=== PATIENT | female | born 1940 | race Caucasian/White ===

== ENCOUNTER 2018-08-04 13:28 | Outpatient (CLI) | payer MEDICARE, BC, SELFPAY ==
--- NOTE | 2018-08-04 | PFT_ITS ---
PULMONARY FUNCTION TEST REPORT Aleida Poole DATE OF SERVICE August 04, 2018 REQUESTING PROVIDER Jordin Lynne M.D. INTERPRETATION OF STUDY Spirometry shows moderately severe obstructive airways disease with no significant bronchodilator response, but there is some bronchodilator response though it does not reach significance dictated by ATS criteria. LUNG VOLUMES - Lung volumes show no evidence of restriction. DIFFUSION CAPACITY- Moderately reduced, which is normal when corrected to alveolar volume. AIRWAY RESISTANCE - Mildly reduced. IMPRESSION Moderately severe obstructive airway disease with some, but not significant bronchodilator response. This is associated with moderate diffusion defect. Clinical correlation recommended. Ruth Jones M.D. HERIBERTO/lyndon Leone 08/06/2018
--- NOTE | 2018-08-04 12:00 | DI.RAD_ITS ---
SYMPTOMS/DIAGNOSIS: PROGRESSIVE DYSPNEA, H/O COPD, J44.9 CHEST X-RAY, TWO VIEWS: Comparison is 08/05/17. The heart size and pulmonary vasculature are stable and within normal limits. The lungs are clear. No effusions or pneumothoraces are identified. There are degenerative changes seen throughout the thoracolumbar spine. There is exaggeration of the kyphosis seen in the thoracolumbar junction. IMPRESSION: No acute pulmonary process.
[2018-08-04] MEDS: Inhaler, Assist Device 1 EACH MC (14:31)
[2018-08-04] MEDS: Albuterol HFA 18 GM 200 PUFF INH IH (14:31)
== END 2018-08-04 13:48 ==
PROVIDERS: PCP Family Medicine; Visit Provider Family Medicine
DX: J44.9 Chronic obstructive pulmonary disease, unspecified (principal); R06.09 Other forms of dyspnea
CPT/HCPCS: 94060; 94150; 94726; 94729; 71046

== ENCOUNTER 2018-08-14 02:01 | Emergency (ER) | payer MEDICARE, BC, SELFPAY ==
[2018-08-14] VITALS (7 sets, daily range): BP systolic 143; BP diastolic 62; PULSE 58–85; RESP 4–36; TEMP 36.6; O2SAT 91–97
--- NOTE | 2018-08-14 02:38 | W.ED.GENAD ---
Discharge Plan Disposition Patient Disposition: HOME Condition: Good Discharge Details Chief Complaint: RespSymp Clinical Impression: Acute exacerbation of chronic obstructive pulmonary disease (COPD) Primary Care Provider: Jordin Lynne ED Provider: Michel Benjamin [facility] and New Rx's Prescriptions: New prednisone 10 mg tablet See Rx Instructions .ROUTE .COMPLEX Qty: 40 RF: 0 amoxicillin-pot clavulanate 875-125 mg tablet 1 tab PO BID Qty: 14 RF: 0 Continued hydrochlorothiazide 25 mg tablet 12.5 mg PO DAILY Qty: 90 RF: 3 Spiriva Respimat 2.5 mcg/actuation mist 2 puff IH DAILY Qty: 4 RF: 11 diclofenac sodium 50 mg tablet,delayed release (DR/EC) 50 mg PO TID PRN (Reason: pain) Qty: 60 RF: 0 amlodipine 5 mg tablet 5 mg PO DAILY Qty: 90 RF: 3 pravastatin 20 mg tablet 30 mg PO DAILY Qty: 135 RF: 3 calcium carbonate-vitamin D3 1 EACH tablet 1 ea PO DAILY RF: 0 Changed albuterol sulfate 90 mcg/actuation HFA aerosol inhaler 2 puff IH Q4H PRN (Reason: shortness of breath or wheezing) Qty: 18 RF: 4 Discharge Instructions Instructions: COPD (Chronic Obstructive Pulmonary Disease) (ED) Additional Instructions: Please use your albuterol (rescue inhaler) every 4 hours while ill. Take prednisone as directed for burst and taper. Take antibiotic as directed for 1 week. Follow-up with primary care next week. Return to emergency department if you develop fever, chest pain, increasing shortness of breath, mental status changes, other concerns. Referrals: Jordin Lynne [Primary Care Provider] - Discharge Data Discharge Date/Time-TO BE ENTERED AT DEPARTURE: 08/14/18 04:32 Medical Decision Making Patient with tachypnea and low 90s saturations but I do not know her baseline. There is no documentation of respiratory radial pulse oximetry at her primary care's office last week. She states that she does not feel any more short of breath than usual. She does have diffuse wheezing and rhonchi. She otherwise looks well. Will treat with DuoNeb and albuterol neb as well as reversed with steroids. Will obtain chest x-ray to rule out pneumonia. Do not think she needs laboratory studies at this point unless there is an obvious infiltrate on x-ray. She is not reporting an increase in sputum production or purulence. 04:15 -patient has had a DuoNeb and 2 albuterol nebs. Saturations are better. Still seems to tachypneic and continues to have wheezing but has better air exchange. Per her and her her breathing seems baseline. I do not see any significant change on chest x-ray compared to last week. Given the increased symptoms and increased cough we will continue steroid burst and taper. We will also start antibiotics for acute exacerbation of COPD without x-ray evidence of pneumonia. We will have her follow-up with primary care next week. We will have her return here to ED if fever, increasing shortness of breath, chest pain, confusion, other concerns. Medical Records Medical records reviewed: Yes I reviewed the patient's medical records. HPI General Mode of arrival: ambulatory. Date/Time Provider Initiated Documentation: 08/14/18 02:36. Limitations to Documentation: no limitations. Information obtained by: patient, family and old records reviewed. HPI Narrative: Patient presents to ED with complaints of cough that has worsened over the last couple of days. She reports having a cold with some congestion, plugged ears and cough. She has had no fever. She does not think she feels any more short of breath than usual. She denies having chest or back pain. She denies any GI symptoms other than loss of appetite. She was just seen by primary care last week. She had pulmonary function testing done prior to that. She was found to have moderate COPD. She has been started on Spiriva last week and was also given a short course of prednisone. Related Data Home Medications Medication Instructions Recorded Confirmed calcium carbonate-vitamin D3 1 ea PO DAILY 08/10/16 08/14/18 diclofenac sodium 50 mg 50 mg PO TID PRN #60 tab NS 07/09/18 08/14/18 tablet,delayed release amlodipine 5 mg tablet 5 mg PO DAILY #90 tab-cap 07/10/18 08/14/18 pravastatin 20 mg tablet 30 mg PO DAILY #135 tab-cap 07/10/18 08/14/18 hydrochlorothiazide 25 mg tablet 12.5 mg PO DAILY #90 tab-cap 08/04/18 08/14/18 tiotropium bromide 2.5 2 puff IH DAILY #4 gm 04/08/19 04/18/19 mcg/actuation mist for inhalation albuterol sulfate 2 puff IH Q4H PRN #18 gm 08/14/18 08/14/18 amoxicillin-pot clavulanate 1 tab PO BID #14 tab 08/14/18 prednisone See Rx Instructions .ROUTE 08/14/18 .COMPLEX #40 tab Previous Rx's Medication Instructions Recorded diclofenac sodium 50 mg 50 mg PO TID PRN #60 tab NS 07/09/18 tablet,delayed release amlodipine 5 mg tablet 5 mg PO DAILY #90 tab-cap 07/10/18 pravastatin 20 mg tablet 30 mg PO DAILY #135 tab-cap 07/10/18 hydrochlorothiazide 25 mg tablet 12.5 mg PO DAILY #90 tab-cap 08/04/18 tiotropium bromide 2.5 2 puff IH DAILY #4 gm 08/04/18 mcg/actuation mist for inhalation albuterol sulfate 2 puff IH Q4H PRN #18 gm 08/14/18 amoxicillin-pot clavulanate 1 tab PO BID #14 tab 08/14/18 prednisone See Rx Instructions .ROUTE 08/14/18 .COMPLEX #40 tab Allergies Allergy/AdvReac Type Severity Reaction Status Date / Time No Known Allergies Allergy Verified 08/14/18 02:10 General Stated Complaint: RespSymp LANA: 3 Review of Systems Review of Systems 02/09 Review of Systems completed and is negative except as stated above in HPI (Systems reviewed: Const, Eyes, ENT, Resp, CV, GI, , MSK, Skin, Neuro) PFSH Medical History Hyperlipidemia, unspecified (Chronic 08/20/16) Essential hypertension (Chronic 08/20/16) COPD (chronic obstructive pulmonary disease) (Chronic 08/27/17) Family History Mother Neoplasm Cancer Father Cancer Sister No problems noted. Brother No problems noted. Brother Essential hypertension Cancer Brother Stroke Maternal Grandfather Neoplasm Cancer Paternal Grandfather Cancer Maternal Grandmother No problems noted. Social History Smoking/Tobacco Use Status: Former Tobacco Use Quit Date: 08/27/97 Alcohol Intake: current Alcohol Intake frequency: 0-2 drinks per day Alcohol type: hard liquor Drug use: Never Substance use type: does not use Caregiver/Support person: No Household members: significant other Housing: house Pets and animals: Yes Pets and animals: cat(s) and dog(s) Do you think of yourself as: straight/heterosexual Current gender identity: decline to answer What is your relationship status?: living with partner How often do you talk on the phone with friends or family?: decline to answer How often do you get together with friends or relatives?: decline to answer How often do you attend pentecostalism or nondenominational services?: decline to answer Do you belong to any clubs or organized social groups?: decline to answer Panel score (0-1 are the most socially isolated patients): 1 What type of physical activity do you participate in: walking Duration: < 15 minutes/day Frequency: 1-2 times per week Tamika/Confucianist: Cheondoism Special tamika needs: No Seatbelt use: always Drive intox or ride w/intox courtesy bus driver: No Do you feel safe in your relationship?: Yes Exam Narrative Exam Narrative: Vitals: Afebrile here. She is somewhat tachypneic and saturations in the low 90s. Const: WDWN elderly female in NAD though tachypneic. HEENT: NC/AT. Normal facial exam. TMs normal. Eyes: Normal conjunctiva and sclera. Neck: Supple. Trachea midline. Lungs: Normal respiratory effort with tachypnea. Decent air exchange but with diffuse expiratory wheezing and some rhonchi. Cor: RRR without murmur/gallop. Good radial pulses. Neuro: A+O x 3. CN grossly in tact. Good strength and no focal deficit. Skin: Warm and dry without rash. Course Vital Signs Temperature 97.9 F 08/14/18 02:06 Pulse 85 08/14/18 02:06 Respiratory Rate 28 H 08/14/18 02:06 Blood Pressure 143/62 H 08/14/18 02:06 Pulse Oximetry 91 L 08/14/18 02:06 Temperature 97.9 F 08/14/18 02:06 Temperature Source Skin 08/14/18 02:06 Pulse 85 08/14/18 02:06 Respiratory Rate 28 H 08/14/18 02:06 Respiratory Effort 08/14/18 02:12 Blood Pressure 143/62 H 08/14/18 02:06 Pulse Oximetry 91 L 08/14/18 02:06 Pain Level 1 08/14/18 02:06
[2018-08-14] MEDS: predniSONE 20 MG TAB 60 MG PO (02:41)
[2018-08-14] MEDS: Albuterol 2.5 MG/3 ML INH SOLN VIAL UPD ×2 (02:41→03:51)
[2018-08-14] MEDS: Albuterol/Ipratropium 3 ML UPD VIAL UPD (02:42)
--- NOTE | 2018-08-14 03:13 | DI.RAD_ITS ---
SYMPTOM/DIAGNOSIS: COUGH, WHEEZE PA AND LATERAL CHEST: The heart is not enlarged. There appear to be changes of COPD. No pleural effusion is seen. Predominantly linear radiodensities are noted in right mid lung on the PA film, probable atelectasis. Minimal patchy consolidation not excluded, follow up film could be obtained if clinically indicated.
[2018-08-14] MEDS: Amoxicillin 875/Clav. 125 TAB PO (04:02)
--- NOTE | 2018-08-14 04:55 | DI.VRAD_ITS ---
EXAM: XR Chest, 2 Views EXAM DATE/TIME: 08/14/2018 2:38 AM CLINICAL HISTORY: 78 years old, female; Signs and symptoms; Cough and wheezing TECHNIQUE: Imaging protocol: XR of the chest, 2 views. COMPARISON: CR XR CHEST 2V PA LATERAL 08/04/2018 12:57 PM FINDINGS: Lungs: Right lower lobe subsegmental atelectasis. No evidence of pneumonia, pulmonary vascular congestion, or pulmonary edema. Pleural space: No pneumothorax. No sizable pleural effusion. Heart/Mediastinum: No cardiomegaly. Bones/joints: Unremarkable. IMPRESSION: Right lower lobe subsegmental atelectasis. No evidence of pneumonia, pulmonary vascular congestion, or pulmonary edema. Dictated and Authenticated by: Ben Lewis MD. Ordering:JONNY Pearson MD
== END 2018-08-14 04:32 | disposition home or self-care (01) ==
PROVIDERS: Emergency Provider Emergency Medicine; PCP Family Medicine
DX: J44.1 Chronic obstructive pulmonary disease with (acute) exacerbation (principal); I10 Essential (primary) hypertension; Z87.891 Personal history of nicotine dependence
CPT/HCPCS: 99284; 71046; J7512; J7613; J7620

== ENCOUNTER 2018-08-21 10:54 | Emergency (ER) | payer MEDICARE, BC, SELFPAY ==
[2018-08-21] VITALS (37 sets, daily range): BP systolic 113–144; BP diastolic 53–123; PULSE 73–93; RESP 4–31; TEMP 36.6–37; O2SAT 88–97
--- NOTE | 2018-08-21 11:12 | W.ED.GENAD ---
Discharge Plan Disposition Patient Disposition: HOME Condition: Fair Discharge Details Chief Complaint: SOB Clinical Impression: COPD (chronic obstructive pulmonary disease) Primary Care Provider: Jordin Lynne ED Provider: Marlin Matson Home Meds and New Rx's Prescriptions: Continued hydrochlorothiazide 25 mg tablet 12.5 mg PO DAILY Qty: 90 RF: 3 Spiriva Respimat 2.5 mcg/actuation mist 2 puff IH DAILY Qty: 4 RF: 11 diclofenac sodium 50 mg tablet,delayed release (DR/EC) 50 mg PO TID PRN (Reason: pain) Qty: 60 RF: 0 amlodipine 5 mg tablet 5 mg PO DAILY Qty: 90 RF: 3 pravastatin 20 mg tablet 30 mg PO DAILY Qty: 135 RF: 3 calcium carbonate-vitamin D3 1 EACH tablet 1 ea PO DAILY RF: 0 prednisone 10 mg tablet See Rx Instructions .ROUTE .COMPLEX Qty: 40 RF: 0 amoxicillin-pot clavulanate 875-125 mg tablet 1 tab PO BID Qty: 14 RF: 0 albuterol sulfate 90 mcg/actuation HFA aerosol inhaler 2 puff IH Q4H PRN (Reason: shortness of breath or wheezing) Qty: 18 RF: 4 Discharge Instructions Instructions: COPD (Chronic Obstructive Pulmonary Disease) (ED) Additional Instructions: Encourage hydration. Try to ambulate more frequently when at home. Will begin pulmonary rehab at the hospital. They will contact you with an appointment. Sleep upcoming appointment with your primary care. Continue medications as previously prescribed If you develop chest pain, increased shortness of breath, fever/chills or other new/worsening symptoms please seek care urgently once again Referrals: Jordin Lynne [Primary Care Provider] - Discharge Data Discharge Date/Time-TO BE ENTERED AT DEPARTURE: 08/21/18 16:15 Medical Decision Making <CHEL Dong - Last Filed: 08/23/18 17:09> Patient is 78-year-old female presented with shortness of breath. She was recently treated with antibiotics and steroids for COPD exacerbation and pneumonia. On exam, she is peer for tachypneic. Oxygen saturation is 96% on room air. Rhonchi and wheezing is noted in the right lower lobe. Plan to repeat chest x-ray and obtain baseline labs. Also obtain EKG. Patient receiving DuoNeb at this time EKG reviewed by Dr. Auguste with no acute abnoramlity noted. NSR, rate 79 <Fredy Auguste MD - Last Filed: 08/21/18 11:51> ECG Data Attestation: I personally reviewed and interpreted this ECG (s) as follows: Prior ECG tracings: available for review Interpretation: sinus rhythm, rate of 80, pr 202, no acute st twave ischemic changes HPI <CHEL Dong - Last Filed: 08/23/18 17:09> General Mode of arrival: ambulatory. Date/Time Provider Initiated Documentation: 08/21/18 11:10. Limitations to Documentation: no limitations. Information obtained by: patient and RN notes reviewed. HPI Narrative: Patient is 78-year-old female presenting today with chief complaint shortness of breath. Patient has history of hyperlipidemia, hypertension, COPD. She been seen here twice in the past week for concerns of shortness of breath. She was treated with steroids and antibiotics for presumed pneumonia and COPD exacerbation. She reports that despite finishing his medications her symptoms have persisted and worsened. She denies any chest pain. States his symptoms are worse particularly with movement. Related Data Home Medications Medication Instructions Recorded Confirmed calcium carbonate-vitamin D3 1 ea PO DAILY 08/10/16 08/21/18 diclofenac sodium 50 mg 50 mg PO TID PRN #60 tab NS 07/09/18 08/21/18 tablet,delayed release amlodipine 5 mg tablet 5 mg PO DAILY #90 tab-cap 07/10/18 08/21/18 pravastatin 20 mg tablet 30 mg PO DAILY #135 tab-cap 07/10/18 08/21/18 hydrochlorothiazide 25 mg tablet 12.5 mg PO DAILY #90 tab-cap 08/04/18 08/21/18 tiotropium bromide 2.5 2 puff IH DAILY #4 gm 08/04/18 08/21/18 mcg/actuation mist for inhalation albuterol sulfate 2 puff IH Q4H PRN #18 gm 08/14/18 08/21/18 amoxicillin-pot clavulanate 1 tab PO BID #14 tab 08/14/18 08/21/18 prednisone See Rx Instructions .ROUTE 08/14/18 08/21/18 .COMPLEX #40 tab Previous Rx's Medication Instructions Recorded diclofenac sodium 50 mg 50 mg PO TID PRN #60 tab NS 07/09/18 tablet,delayed release amlodipine 5 mg tablet 5 mg PO DAILY #90 tab-cap 07/10/18 pravastatin 20 mg tablet 30 mg PO DAILY #135 tab-cap 07/10/18 hydrochlorothiazide 25 mg tablet 12.5 mg PO DAILY #90 tab-cap 08/04/18 tiotropium bromide 2.5 2 puff IH DAILY #4 gm 08/04/18 mcg/actuation mist for inhalation albuterol sulfate 2 puff IH Q4H PRN #18 gm 08/14/18 amoxicillin-pot clavulanate 1 tab PO BID #14 tab 08/14/18 prednisone See Rx Instructions .ROUTE 08/14/18 .COMPLEX #40 tab Allergies Allergy/AdvReac Type Severity Reaction Status Date / Time No Known Allergies Allergy Verified 08/21/18 12:11 General LANA: 3 PFSH <CHEL Dong - Last Filed: 08/23/18 17:09> Medical History Hyperlipidemia, unspecified (Chronic 08/20/16) Essential hypertension (Chronic 08/20/16) COPD (chronic obstructive pulmonary disease) (Chronic 08/27/17) Family History Mother Neoplasm Cancer Father Cancer Sister No problems noted. Brother No problems noted. Brother Essential hypertension Cancer Brother Stroke Maternal Grandfather Neoplasm Cancer Paternal Grandfather Cancer Maternal Grandmother No problems noted. Social History Smoking/Tobacco Use Status: Former Tobacco Use Quit Date: 08/27/97 Alcohol Intake: current Alcohol Intake frequency: 0-2 drinks per day Alcohol type: hard liquor Drug use: Never Substance use type: does not use Caregiver/Support person: No Household members: significant other Housing: house Pets and animals: Yes Pets and animals: cat(s) and dog(s) Do you think of yourself as: straight/heterosexual Current gender identity: decline to answer What is your relationship status?: living with partner How often do you talk on the phone with friends or family?: decline to answer How often do you get together with friends or relatives?: decline to answer How often do you attend yazidi or worship services?: decline to answer Do you belong to any clubs or organized social groups?: decline to answer Panel score (0-1 are the most socially isolated patients): 1 What type of physical activity do you participate in: walking Duration: < 15 minutes/day Frequency: 1-2 times per week Tamika/Protestant: Scientology Special tamika needs: No Seatbelt use: always Drive intox or ride w/intox cdl company driver: No Do you feel safe in your relationship?: Yes
--- NOTE | 2018-08-21 11:18 | DI.RAD_ITS ---
SYMPTOMS/DIAGNOSIS: SOB, RLL RHONCHI, WHEEZING PA AND LATERAL CHEST: When compared with the previous examination of 08/14, there has been no definite interval change. No pulmonary infiltrate is identified. There is no pleural effusion. The cardiovascular structures are intact. SUMMARY: No definite interval change. No evidence of acute cardiopulmonary disease.
--- NOTE | 2018-08-21 11:22 | ED.GENADUL_ITS ---
Discharge Plan Disposition Patient Disposition: HOME Condition: Fair Discharge Details Chief Complaint: SOB Clinical Impression: COPD (chronic obstructive pulmonary disease) Primary Care Provider: Jordin Lynne ED Provider: Marlin Matson Home Meds and New Rx's Prescriptions: Continued hydrochlorothiazide 25 mg tablet 12.5 mg PO DAILY Qty: 90 RF: 3 Spiriva Respimat 2.5 mcg/actuation mist 2 puff IH DAILY Qty: 4 RF: 11 diclofenac sodium 50 mg tablet,delayed release (DR/EC) 50 mg PO TID PRN (Reason: pain) Qty: 60 RF: 0 amlodipine 5 mg tablet 5 mg PO DAILY Qty: 90 RF: 3 pravastatin 20 mg tablet 30 mg PO DAILY Qty: 135 RF: 3 calcium carbonate-vitamin D3 1 EACH tablet 1 ea PO DAILY RF: 0 prednisone 10 mg tablet See Rx Instructions .ROUTE .COMPLEX Qty: 40 RF: 0 amoxicillin-pot clavulanate 875-125 mg tablet 1 tab PO BID Qty: 14 RF: 0 albuterol sulfate 90 mcg/actuation HFA aerosol inhaler 2 puff IH Q4H PRN (Reason: shortness of breath or wheezing) Qty: 18 RF: 4 Discharge Instructions Instructions: COPD (Chronic Obstructive Pulmonary Disease) (ED) Additional Instructions: Encourage hydration. Try to ambulate more frequently when at home. Will begin pulmonary rehab at the hospital. They will contact you with an appointment. Sleep upcoming appointment with your primary care. Continue medications as previously prescribed If you develop chest pain, increased shortness of breath, fever/chills or other new/worsening symptoms please seek care urgently once again Referrals: Jordin Lynne [Primary Care Provider] - Discharge Data Discharge Date/Time-TO BE ENTERED AT DEPARTURE: 08/21/18 16:15 Medical Decision Making <CHEL Dong - Last Filed: 08/23/18 17:09> Patient is 78-year-old female presented with shortness of breath. She was recently treated with antibiotics and steroids for COPD exacerbation and pneumonia. On exam, she is peer for tachypneic. Oxygen saturation is 96% on room air. Rhonchi and wheezing is noted in the right lower lobe. Plan to repeat chest x-ray and obtain baseline labs. Also obtain EKG. Patient receiving DuoNeb at this time EKG reviewed by Dr. Auguste with no acute abnoramlity noted. NSR, rate 79 <Fredy Auguste MD - Last Filed: 08/21/18 11:51> ECG Data Attestation: I personally reviewed and interpreted this ECG (s) as follows: Prior ECG tracings: available for review Interpretation: sinus rhythm, rate of 80, pr 202, no acute st twave ischemic changes HPI <CHEL Dong - Last Filed: 08/23/18 17:09> General Mode of arrival: ambulatory . Date/Time Provider Initiated Documentation: 08/21/18 11:10 . Limitations to Documentation: no limitations . Information obtained by: patient and RN notes reviewed . HPI Narrative: Patient is 78-year-old female presenting today with chief complaint shortness of breath. Patient has history of hyperlipidemia, hypertension, COPD. She been seen here twice in the past week for concerns of shortness of breath. She was treated with steroids and antibiotics for presumed pneumonia and COPD exacerbation. She reports that despite finishing his medications her symptoms have persisted and worsened. She denies any chest pain. States his symptoms are worse particularly with movement. Related Data Home Medications Medication Instructions Recorded Confirmed calcium carbonate-vitamin D3 1 ea PO DAILY 08/10/16 08/21/18 diclofenac sodium 50 mg 50 mg PO TID PRN #60 tab NS 07/09/18 08/21/18 tablet,delayed release amlodipine 5 mg tablet 5 mg PO DAILY #90 tab-cap 07/10/18 08/21/18 pravastatin 20 mg tablet 30 mg PO DAILY #135 tab-cap 07/10/18 08/21/18 hydrochlorothiazide 25 mg tablet 12.5 mg PO DAILY #90 tab-cap 08/04/18 08/21/18 tiotropium bromide 2.5 2 puff IH DAILY #4 gm 08/04/18 08/21/18 mcg/actuation mist for inhalation albuterol sulfate 2 puff IH Q4H PRN #18 gm 08/14/18 08/21/18 amoxicillin-pot clavulanate 1 tab PO BID #14 tab 08/14/18 08/21/18 prednisone See Rx Instructions .ROUTE 08/14/18 08/21/18 .COMPLEX #40 tab Previous Rx's Medication Instructions Recorded diclofenac sodium 50 mg 50 mg PO TID PRN #60 tab NS 07/09/18 tablet,delayed release amlodipine 5 mg tablet 5 mg PO DAILY #90 tab-cap 07/10/18 pravastatin 20 mg tablet 30 mg PO DAILY #135 tab-cap 07/10/18 hydrochlorothiazide 25 mg tablet 12.5 mg PO DAILY #90 tab-cap 08/04/18 tiotropium bromide 2.5 2 puff IH DAILY #4 gm 08/04/18 mcg/actuation mist for inhalation albuterol sulfate 2 puff IH Q4H PRN #18 gm 08/14/18 amoxicillin-pot clavulanate 1 tab PO BID #14 tab 08/14/18 prednisone See Rx Instructions .ROUTE 08/14/18 .COMPLEX #40 tab Allergies Allergy/AdvReac Type Severity Reaction Status Date / Time No Known Allergies Allergy Verified 08/21/18 12:11 General LANA: 3 PFSH <CHEL Dong - Last Filed: 08/23/18 17:09> Medical History Hyperlipidemia, unspecified (Chronic 08/20/16) Essential hypertension (Chronic 08/20/16) COPD (chronic obstructive pulmonary disease) (Chronic 08/27/17) Family History Mother Neoplasm Cancer Father Cancer Sister No problems noted. Brother No problems noted. Brother Essential hypertension Cancer Brother Stroke Maternal Grandfather Neoplasm Cancer Paternal Grandfather Cancer Maternal Grandmother No problems noted. Social History Smoking/Tobacco Use Status: Former Tobacco Use Quit Date: 08/27/97 Alcohol Intake: current Alcohol Intake frequency: 0-2 drinks per day Alcohol type: hard liquor Drug use: Never Substance use type: does not use Caregiver/Support person: No Household members: significant other Housing: house Pets and animals: Yes Pets and animals: cat(s) and dog(s) Do you think of yourself as: straight/heterosexual Current gender identity: decline to answer What is your relationship status?: living with partner How often do you talk on the phone with friends or family?: decline to answer How often do you get together with friends or relatives?: decline to answer How often do you attend gnosticist or mandaeism services?: decline to answer Do you belong to any clubs or organized social groups?: decline to answer Panel score (0-1 are the most socially isolated patients): 1 What type of physical activity do you participate in: walking Duration: < 15 minutes/day Frequency: 1-2 times per week Tamika/Samaritan: Episcopal Special tamika needs: No Seatbelt use: always Drive intox or ride w/intox class c driver: No Do you feel safe in your relationship?: Yes
[2018-08-21] MEDS: Normal Saline Flush 10 ML SYR IVP (11:30)
[2018-08-21] MEDS: Albuterol/Ipratropium 3 ML UPD VIAL UPD (11:32)
[2018-08-21 12:03] LABS: ALT 34 U/L (12-78); AST 14 U/L (15-37); Alkaline Phosphatase 138 U/L (46-116); Anion Gap 7.6 mmol/L (3-11); BUN 26 mg/dL (7-18); Bilirubin, Total 0.7 mg/dL (0.2-1.0); CO2 28.4 mmol/L (21.0-32.0); CREATININE 0.74 mg/dL (0.55-1.02); Calcium 8.8 mg/dL (8.5-10.1); Chloride 101 mmol/L (98-107); Glucose 108 mg/dL (70-100); NT-proBNP 51 pg/mL; Potassium 3.4 mmol/L (3.5-5.1); Sodium 137 mmol/L (136-145); Total Protein 7.5 g/dL (6.4-8.2)
[2018-08-21 12:10] LABS: PTT Activated 23.2 sec (21.0-31.4); Prothrombin Time 9.5 sec (9.3-11.0)
[2018-08-21 12:19] LABS: Troponin I < 0.02 ng/mL (0.00-0.06)
--- NOTE | 2018-08-21 12:33 | W.ED.GENAD ---
Discharge Plan Disposition Patient Disposition: HOME Condition: Fair Discharge Details Chief Complaint: SOB Clinical Impression: COPD (chronic obstructive pulmonary disease) Primary Care Provider: Jordin Lynne ED Provider: Marlin Matson Home Meds and New Rx's Prescriptions: Continued hydrochlorothiazide 25 mg tablet 12.5 mg PO DAILY Qty: 90 RF: 3 Spiriva Respimat 2.5 mcg/actuation mist 2 puff IH DAILY Qty: 4 RF: 11 diclofenac sodium 50 mg tablet,delayed release (DR/EC) 50 mg PO TID PRN (Reason: pain) Qty: 60 RF: 0 amlodipine 5 mg tablet 5 mg PO DAILY Qty: 90 RF: 3 pravastatin 20 mg tablet 30 mg PO DAILY Qty: 135 RF: 3 calcium carbonate-vitamin D3 1 EACH tablet 1 ea PO DAILY RF: 0 prednisone 10 mg tablet See Rx Instructions .ROUTE .COMPLEX Qty: 40 RF: 0 amoxicillin-pot clavulanate 875-125 mg tablet 1 tab PO BID Qty: 14 RF: 0 albuterol sulfate 90 mcg/actuation HFA aerosol inhaler 2 puff IH Q4H PRN (Reason: shortness of breath or wheezing) Qty: 18 RF: 4 Discharge Instructions Instructions: COPD (Chronic Obstructive Pulmonary Disease) (ED) Additional Instructions: Encourage hydration. Try to ambulate more frequently when at home. Will begin pulmonary rehab at the hospital. They will contact you with an appointment. Sleep upcoming appointment with your primary care. Continue medications as previously prescribed If you develop chest pain, increased shortness of breath, fever/chills or other new/worsening symptoms please seek care urgently once again Referrals: Jordin Lynne [Primary Care Provider] - Discharge Data Discharge Date/Time-TO BE ENTERED AT DEPARTURE: 08/21/18 16:15 Medical Decision Making Patient 78-year-old female with history of COPD, hypertension, hyperlipidemia. Presenting today with chief complaint of shortness of breath. Patient was seen here 1 week ago and diagnosed with COPD exacerbation. She was treated with antibiotics and steroids, despite this her symptoms have persisted. Denies any chest pain. No recent travel. No lower extremity edema or discomfort. States that shortness of breath is worse with exertion. Exam, patient is tachypneic. She is speaking in full sentences. She has scattered mild expiratory wheezes. Sounds coarse in the right upper lobe. Primarily concern for COPD exacerbation, pneumonia versus other pulmonary source. Her symptoms are less concerning for ACS or cardiac source she is not having any chest pain and symptoms are fairly constant despite being at rest. She does report that symptoms are worsened with exertion. We will obtain cardiac evaluation as well. Discussed this plan with the patient is in agreement. Patient was given DuoNeb to help with the wheezing see this of management Patient received a DuoNeb, while her right lobe wheezing and rhonchi have cleared, she continues to endorse feeling short of breath and does not feel much improved. Her oxygen remains at 93% on room air. EKG was reviewed by Dr. Auguste with no acute abnormalities noted, please see his documentation for further information Lab significant for potassium 3.4, we will replenish this year. Troponin is less than 0.02. BNP was in within normal limits Concern for possible pulmonary embolism as the patient has been slightly hypoxic continues to endorse shortness of breath. Plan to obtain CT. Patient was a smoker, and also considering a mass underlying etiology CT reviewed by radiologist and was reviewed to be negative Discussed these findings with the patient. She continues to endorse shortness of breath although her oxygen is 96%. She continues to deny any discomfort. No GI upset. We will have respiratory come and road test the patient and discuss further treatment. While she was on a recent burst of steroids, as this is likely associated with her COPD and to continue with another steroid treatment. Respiratory therapy ambulated the patient. Her oxygen came up to 97% with ambulation, the lowest he noted was 93% when at rest. Discussed this in depth with respiratory therapist advised pulmonary rehab as well has increased home activity and hydration. I discussed this with the patient was in agreement with this plan. I discussed treatment options with respiratory as well as physician. At this point, she does not seem she needs further steroids or antibiotics as there is no evidence of infection and her oxygen has been well maintained despite her symptoms. There is no evidence at this time cardiac source. I advised that she will need close follow-up with her primary care as well as the pulmonary rehab. We discussed new/worsening symptoms when to seek care urgently once again. I advised to keep upcoming appointment with primary care next week. All of her questions and concerns were addressed and she is in agreement HPI General Mode of arrival: ambulatory. Date/Time Provider Initiated Documentation: 08/21/18 11:10. Limitations to Documentation: no limitations. Information obtained by: patient and RN notes reviewed. History of Present Illness 78 year old F presents to the emergency department with the chief complaint of SOB, described as moderate, Patient reports no radiation (denies any pain). Patient started experiencing this day(s) and it has been constant (worsening). No relieving factors improve symptom(s), Movement worsens symptoms . Patient notes cough and shortness of breath; denies chest pain, fever/chills, headaches, loss of appetite, nausea/vomiting, rash and syncope. Patient did receive the following treatments prior to arrival, other (prednisone and augmentin) Related Data Home Medications Medication Instructions Recorded Confirmed calcium carbonate-vitamin D3 1 ea PO DAILY 08/10/16 08/21/18 diclofenac sodium 50 mg 50 mg PO TID PRN #60 tab NS 07/09/18 08/21/18 tablet,delayed release amlodipine 5 mg tablet 5 mg PO DAILY #90 tab-cap 07/10/18 08/21/18 pravastatin 20 mg tablet 30 mg PO DAILY #135 tab-cap 07/10/18 08/21/18 hydrochlorothiazide 25 mg tablet 12.5 mg PO DAILY #90 tab-cap 08/04/18 08/21/18 tiotropium bromide 2.5 2 puff IH DAILY #4 gm 08/04/18 08/21/18 mcg/actuation mist for inhalation albuterol sulfate 2 puff IH Q4H PRN #18 gm 08/14/18 08/21/18 amoxicillin-pot clavulanate 1 tab PO BID #14 tab 08/14/18 08/21/18 prednisone See Rx Instructions .ROUTE 08/14/18 08/21/18 .COMPLEX #40 tab Previous Rx's Medication Instructions Recorded diclofenac sodium 50 mg 50 mg PO TID PRN #60 tab NS 07/09/18 tablet,delayed release amlodipine 5 mg tablet 5 mg PO DAILY #90 tab-cap 07/10/18 pravastatin 20 mg tablet 30 mg PO DAILY #135 tab-cap 07/10/18 hydrochlorothiazide 25 mg tablet 12.5 mg PO DAILY #90 tab-cap 08/04/18 tiotropium bromide 2.5 2 puff IH DAILY #4 gm 08/04/18 mcg/actuation mist for inhalation albuterol sulfate 2 puff IH Q4H PRN #18 gm 08/14/18 amoxicillin-pot clavulanate 1 tab PO BID #14 tab 08/14/18 prednisone See Rx Instructions .ROUTE 08/14/18 .COMPLEX #40 tab Allergies Allergy/AdvReac Type Severity Reaction Status Date / Time No Known Allergies Allergy Verified 08/21/18 12:11 General Stated Complaint: SOB LANA: 2 Review of Systems Constitutional Reports as per HPI, Denies chills, Denies fatigue, Denies fever(s), Denies headache(s) and Denies poor appetite Eyes Reports as per HPI, Denies eye discharge and Denies irritation ENT Reports as per HPI and Denies headache(s) Cardiovascular Reports as per HPI, Denies chest pain, Denies chest pain at rest, Denies pedal edema, Denies irregular heart rhythm, Denies radiating jaw, neck or arm pain, Denies palpitations, Reports dyspnea and Reports dyspnea on exertion Respiratory Reports as per HPI, Reports cough, Denies hemoptysis, Reports dyspnea, Reports dyspnea on exertion, Denies stridor and Denies wheezing Gastrointestinal Reports as per HPI, Denies abdominal pain, Denies change in bowel habits, Denies nausea and Denies vomiting Integumentary/Breasts Reports as per HPI and Denies rash Neurologic Reports as per HPI and Denies headache(s) Endocrine Denies fatigue and Denies palpitations Allergic/Immunologic Denies wheezing [facility] Medical History Hyperlipidemia, unspecified (Chronic 08/20/16) Essential hypertension (Chronic 08/20/16) COPD (chronic obstructive pulmonary disease) (Chronic 08/27/17) Family History Mother Neoplasm Cancer Father Cancer Sister No problems noted. Brother No problems noted. Brother Essential hypertension Cancer Brother Stroke Maternal Grandfather Neoplasm Cancer Paternal Grandfather Cancer Maternal Grandmother No problems noted. Social History Smoking/Tobacco Use Status: Former Tobacco Use Quit Date: 08/27/97 Alcohol Intake: current Alcohol Intake frequency: 0-2 drinks per day Alcohol type: hard liquor Drug use: Never Substance use type: does not use Caregiver/Support person: No Household members: significant other Housing: house Pets and animals: Yes Pets and animals: cat(s) and dog(s) Do you think of yourself as: straight/heterosexual Current gender identity: decline to answer What is your relationship status?: living with partner How often do you talk on the phone with friends or family?: decline to answer How often do you get together with friends or relatives?: decline to answer How often do you attend protestant or restoration services?: decline to answer Do you belong to any clubs or organized social groups?: decline to answer Panel score (0-1 are the most socially isolated patients): 1 What type of physical activity do you participate in: walking Duration: < 15 minutes/day Frequency: 1-2 times per week Tamika/Confucianist: Restorationism Special tamika needs: No Seatbelt use: always Drive intox or ride w/intox emergency medical technician/driver: No Do you feel safe in your relationship?: Yes Exam Const General: cooperative, healthy appearing, comfortable, no acute distress, well developed and well groomed Nutritional Appearance: average body habitus and well nourished Orientation: alert and awake [facility] Head: normal to inspection, normocephalic and atraumatic Ears: hearing grossly normal bilaterally, external ears normal and TM's normal bilaterally General nose exam: external nose normal and nares normal Face and sinus: normal facial exam, sinuses nontender and face symmetric Mouth: oral mucosae normal, lip normal, tongue normal, oropharynx normal and moist mucous membranes Teeth and gingiva: dentition normal Throat: posterior oropharynx normal, tonsils normal and uvula midline Eyes General: appearance normal, both eyes and all related structures Neck Neck: normal visual inspection, full ROM, no lymphadenopathy and no meningeal signs Resp Effort & Inspection: normal respiratory effort, able to speak in complete sentences and no respiratory distress Auscultation: no rales, rhonchi right upper and wheezes inspiratory wheezes and scattered wheezes Cardio Rate: regular rate Rhythm: regular rhythm Heart Sounds: S1 normal and S2 normal Skin General skin exam: no rashes or lesions noted Neuro General: alert and awake Cognition: normal cognition Speech: speech normal Gait: normal gait Psych Appearance: grossly normal and well kempt Mental Status: mental status grossly normal Speech and Movement: speech and movement normal Course Vital Signs Temperature 37.0 C 08/21/18 11:13 Pulse 85 08/21/18 11:13 Respiratory Rate 25 H 08/21/18 11:13 Blood Pressure 113/55 L 08/21/18 11:13 Pulse Oximetry 95 08/21/18 11:13 Temperature 37.0 C 08/21/18 11:13 Temperature Source Skin 08/21/18 11:13 Pulse 73 08/21/18 11:57 Pulse 82 08/21/18 12:00 Respiratory Rate 17 08/21/18 12:08 Respiratory Effort 08/21/18 12:08 Respiratory Depth Normal 08/21/18 12:08 Respiratory Pattern Normal 08/21/18 12:08 Blood Pressure 119/60 08/21/18 11:57 Blood Pressure Mean 75 08/21/18 11:57 Blood Pressure Position Sitting 08/21/18 11:13 Pulse Oximetry 91 L 08/21/18 12:00 Oxygen Delivery Method Room Air 08/21/18 11:13 Oxygen Flow Rate 0 08/21/18 11:13 Pain Level 3 08/21/18 11:13 Lab/Test Results Lab/Test Results: Laboratory Tests Range/Units 08/21/18 08/21/18 11:30 11:30 PT (9.3-11.0) sec 9.5 INR (0.9-1.1) 1.0 APTT (21.0-31.4) sec 23.2 Sodium (136-145) mmol/L 137 Potassium (3.5-5.1) mmol/L 3.4 L Chloride (98-107) mmol/L 101 Carbon Dioxide (21.0-32.0) mmol/L 28.4 Anion Gap (3-11) mmol/L 7.6 BUN (7-18) mg/dL 26 H Creatinine (0.55-1.02) mg/dL 0.74 Estimated GFR/1.73 m2 (mL/min/1.73m2) >= 60.00 Glucose (70-100) mg/dL 108 H Calcium (8.5-10.1) mg/dL 8.8 Magnesium (1.8-2.4) mg/dL 2.0 Total Bilirubin (0.2-1.0) mg/dL 0.7 AST (15-37) U/L 14 L ALT (12-78) U/L 34 Alkaline Phosphatase (46-116) U/L 138 H Troponin I (0.00-0.06) ng/mL < 0.02 NT-Pro-B Natriuret Pep ( - 299) pg/mL 51 Total Protein (6.4-8.2) g/dL 7.5 Albumin (3.4-5.0) g/dL 3.0 L
[2018-08-21 13:04] LABS: Abs Immature Grans 0.09 k/cumm (0.0-0.09); Absolute Basophil Count 0.01 k/cumm (0.0-0.2); Absolute Eosinophil Count 0.13 k/cumm (0.0-0.7); Absolute Lymphocyte Count 1.46 k/cumm (1.2-3.4); Absolute Monocyte Count 1.19 k/cumm (0.11-0.7); Absolute Neutrophil Count 8.86 k/cumm (1.2-6.7); Basophils % 0.1; Eosinophils % 1.1; HCT 42.6 % (36.0-46.0); HGB 14.3 g/dL (12.0-15.5); Immature Grans % 0.8; Lymphocytes % 12.4; Mean Corp. HGB Concentration 33.6 g/dL (32.0-36.0); Mean Corpuscular Hemoglobin 30.5 pg (27.0-33.0); Mean Corpuscular Volume 90.8 fL (80-95); Mean Platelet Volume 9.8 fL (8.0-11.0); Monocytes % 10.1; Neutrophils % 75.5; Platelet Count 302 x1000/uL (130-400); RBC 4.69 m/cumm (4.00-5.20); RBC Distribution Width 13.7 % (11.7-14.6); White Blood Cell Count 11.74 k/cumm (4.4-10.8)
[2018-08-21] MEDS: Albuterol 2.5 MG/3 ML INH SOLN VIAL UPD (13:32)
--- NOTE | 2018-08-21 14:23 | DI.CT_ITS ---
SYMPTOMS/DIAGNOSIS: SHORTNESS OF BREATH PE CT: CT angiography was performed with multi slice acquisition and multi planar and 3D reconstruction. The study was conducted according to the usual protocol with an intravenous administration of 100 cc of Omnipaque 350. There is no evidence of pulmonary embolic disease. The lungs are free of infiltrate. There is no pleural effusion. The heart is not enlarged. There is no evidence of a pericardial effusion. There is no evidence of an aortic aneurysm. SUMMARY: No evidence of pulmonary emboli. No evidence of acute cardiopulmonary disease.
[2018-08-21] MEDS: Omnipaque 350 MG/ML 100 ML BTL IJ (14:25)
[2018-08-21] MEDS: Potassium Chloride 20 MEQ TABCR PO (16:10)
== END 2018-08-21 16:15 | disposition home or self-care (01) ==
PROVIDERS: Emergency Provider Physician Assistant; PCP Family Medicine
DX: J44.9 Chronic obstructive pulmonary disease, unspecified (principal); I10 Essential (primary) hypertension; Z87.891 Personal history of nicotine dependence
CPT/HCPCS: 36415; 71275; 80053; 93005; 94640; 99285; 71046; 83735; 83880; 84484; 85025; 85610; 85730; 93010; J3490; J7613; J7620

== ENCOUNTER 2018-09-05 14:20 | Outpatient (RCR) | payer MEDICARE, BC, SELFPAY | END 2018-09-26 23:59 | disposition home or self-care (01) | LOC: PRC 14:20 | PROVIDERS: PCP Family Medicine; Visit Provider Family Medicine | DX: J44.9 Chronic obstructive pulmonary disease, unspecified (principal); Z51.89 Encounter for other specified aftercare ==

== ENCOUNTER 2018-09-24 00:55 | Outpatient (CLI) | payer MEDICARE, BC, SELFPAY ==
--- NOTE | 2018-09-24 12:00 | DI.US_ITS ---
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 There is no evidence of significant right or left carotid stenosis and antegrade flow is noted in the vertebrals. Incidental note is made of bilateral thyroid nodules. SUMMARY: No evidence of significant carotid stenosis.
== END 2018-09-24 01:15 ==
PROVIDERS: PCP Family Medicine; Visit Provider Family Medicine
DX: R27.0 Ataxia, unspecified (principal); R47.01 Aphasia; E04.2 Nontoxic multinodular goiter
CPT/HCPCS: 93880

== ENCOUNTER 2018-09-28 04:52 | Outpatient (RCR) | payer MEDICARE, BC, SELFPAY | END 2018-10-26 23:59 | disposition home or self-care (01) | LOC: PRC 04:52 | PROVIDERS: PCP Family Medicine; Visit Provider Family Medicine | DX: J44.9 Chronic obstructive pulmonary disease, unspecified (principal); Z51.89 Encounter for other specified aftercare | CPT/HCPCS: G0424 ==

== ENCOUNTER 2018-09-29 15:30 | Outpatient (CLI) | payer MEDICARE, BC, SELFPAY ==
--- NOTE | 2018-10-20 11:32 | ZIOP_ITS ---
DATE OF DICTATION: October 20, 2018 ENROLLMENT: 23 hours, September 292018 Baseline rhythm sinus. Occasional single PAC. No SVT or atrial fibrillation. Rare single PVC. Rare couplet. No VT. No bradycardia or block. No triggered events. No symptoms. Average heart rate sinus 79 bpm, range 49-108 bpm.
--- NOTE | 2018-10-22 09:49 | ZIOP_ITS ---
ZIO PATCH REPORT DATE OF DICTATION October 22, 2018 STUDY INDICATION Shortness of breath. REQUESTING PROVIDER Jordin Lynne M.D. FINDINGS The patient was monitored for 13 days and 17 hours. The predominant underlying rhythm was sinus rhythm. Average heart rate in sinus rhythm 83 beats per minute, range 49 to 125 beats per minute. There was rare ectopy. There was one 7-beat atrial run, average heart rate 132 beats per minute. There were no pauses greater than 3 seconds. There was no higher degree heart block. There was one patient event that did not correlate with arrhythmia. FINAL INTERPRETATION No significant tachy or riccardo arrhythmias. Chente Godinez M.D. EDUARDO/lyndon T - 10/22/18
== END 2018-09-29 15:50 ==
PROVIDERS: PCP Family Medicine; Visit Provider Family Medicine
DX: R06.02 Shortness of breath (principal); I49.1 Atrial premature depolarization
CPT/HCPCS: 0296T

== ENCOUNTER 2018-09-30 01:36 | Outpatient (CLI) | payer MEDICARE, BC, SELFPAY ==
--- NOTE | 2018-09-30 14:39 | DI.MRI_ITS ---
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 There is moderate generalized cerebral atrophy and there appears to be atrophy of the cerebellar hemispheres, particularly medially and inferiorly. There are mild periventricular white matter signal changes consistent with microvascular ischemic change. No other focal signal abnormality identified in the brain. Diffusion weighted imaging is unremarkable. Susceptibility weighted imaging shows no evidence of intracranial hemorrhage. The orbital and temporal bone structures appear intact, as does the pituitary. CONCLUSION: Cerebral/cerebellar atrophy. No evidence of acute process.
== END 2018-09-30 01:56 ==
PROVIDERS: PCP Family Medicine; Visit Provider Family Medicine
DX: R27.0 Ataxia, unspecified (principal); R47.01 Aphasia; G31.1 Senile degeneration of brain, not elsewhere classified
CPT/HCPCS: 70551

== ENCOUNTER 2018-10-03 15:28 | Observation (INO) | payer MEDICARE, BC, SELFPAY ==
[2018-10-03] VITALS (54 sets, daily range): BP systolic 148–181; BP diastolic 64–139; PULSE 79–96; RESP 11–31; TEMP 36.3–36.6; O2SAT 91–99
--- NOTE | 2018-10-03 15:29 | ED.GENADUL_ITS ---
Discharge Plan Disposition Patient Disposition: [facility] INPATIENT Condition: Stable Discharge Details Chief Complaint: CVA/TIA Clinical Impression: Combined receptive and expressive aphasia, Confusion Primary Care Provider: Jordin Lynne ED Provider: Ella Davis Home Meds and New Rx's Prescriptions: No Action hydrochlorothiazide 25 mg tablet 12.5 mg PO DAILY Qty: 90 RF: 3 pravastatin 20 mg tablet 30 mg PO DAILY Qty: 135 RF: 3 diclofenac sodium 50 mg tablet,delayed release (DR/EC) 50 mg PO BID PRN (Reason: pain) Qty: 60 RF: 2 calcium carbonate-vitamin D3 1 EACH tablet 1 ea PO DAILY RF: 0 albuterol sulfate 90 mcg/actuation HFA aerosol inhaler 2 puff IH Q4H PRN (Reason: shortness of breath or wheezing) Qty: 18 RF: 4 Medical Decision Making 78-year-old female with a history of hypertension and high cholesterol who presents from pulmonary rehab with concern for stroke. game technician Kaitlyn noted that patient appeared to be having difficulty with expressing herself and had worsening of her chronic slurred speech. She has a history of expressive aphasia. Her blood pressure was slightly increasing from 144/83 to 172/91. On arrival to ED, patient noted to have slurred speech which she states is slightly worse than her baseline. Blood pressure 155/73. No obvious focal deficits. We will do a cardiac work-up and send for stat CT head. 1550 --stat CT head negative. Patient's partner now bedside and states that patient appears back to her baseline. Patient is now but does state that she had a headache, felt like her speech was more slurred and had difficulty expressing herself and had blurry vision. She states all the symptoms are now resolved. Discussed that this could be a TIA and recommend hospital admission for observation. Patient would rather not stay in the hospital at this time. Upon review of records, patient was seen by her primary care doctor last month for expressive aphasia thought to be possibly due to an ischemic stroke. She had described that she has had expressive aphasia of 4 to 5 months. She had an MRI brain 3 days ago which is negative. She had a carotid ultrasound last month which was negative. 1800 --results and presentation discussed with [facility] neurology -differential diagnosis can include degenerative disease, seizure, migraine, TIA, delirium, electrolyte abnormality. Does not sound specifically like TIA as her symptoms have been chronic and waxing and waning. Could be reasonable to admit for telemetry for 24 to 48 hours and with echocardiogram. Patient has already had a ZIO Patch placed by her primary care doctor. 183 --labs and chest x-ray reviewed and unremarkable. Normal white blood cell count. Potassium 3.2. Troponin negative. Urinalysis negative for infection. Chest x-ray appears negative. Attempted to assess visual acuity but nurse states that patient was confused when reading the eye chart. Patient appears to be confused when trying to explain what happened today and is unable to explain back to me what happened today and specifically what all of my concerns are. Her partner states that she has had increasing worsening memory over the last few months, but states her difficulty with speech was at its worse today. Discussed that this could possibly be dementia. Patient states she does not want to stay at the hospital. I do not think at this time that patient has capacity to make decisions as she seems somewhat confused. She states the years 2019 but she does know her name and location. Her partner thinks it is advisable for admission and patient is now agreeable. 1914 --discussed with hospitalist -accepts patient for admission Medical Records Medical records reviewed: Yes I reviewed the patient's medical records. Imaging Data Radiologic Study: Radiologist's impression: CT BRAIN, NONCONTRAST: The ventricles and sulci are consistent with the patient's age. No acute infarct, hemorrhage, midline shift or mass effect is identified. The ventricles are intact. The basilar cisterns are patent. The visualized paranasal sinuses are clear. The mastoid air cells are well pneumatized. The calvarium is intact. IMPRESSION: No acute intracranial process. Radiologic Study #2: Radiologist's impression: XR Chest, 2 Views EXAM DATE/TIME: 10/03/2018 15:58 CLINICAL HISTORY: 78 years old, female; Signs and symptoms; Other: Slurred speech, R/O acute disease TECHNIQUE: Imaging protocol: XR of the chest, 2 views. COMPARISON: CR XR CHEST 2V PA LATERAL 08/21/2018 11:57 FINDINGS: Lungs: Hyperinflation without airspace consolidation similar to the previous study. Pleural space: No pleural effusion. No pneumothorax. Heart/Mediastinum: No cardiomegaly. Bones/joints: Degenerative changes in the shoulders. Probable calcific tendinitis in the right shoulder. IMPRESSION: Hyperinflation without airspace consolidation similar to the previous study. Lab Data Lab results reviewed: Yes I reviewed the patient's lab results. Laboratory Tests Range/Units 10/03/18 10/03/18 10/03/18 16:40 16:40 16:40 WBC (4.4-10.8) k/cumm 7.07 RBC (4.00-5.20) m/cumm 4.41 Hgb (12.0-15.5) g/dL 13.5 Hct (36.0-46.0) % 40.7 MCV (80-95) fL 92.3 MCH (27.0-33.0) pg 30.6 MCHC (32.0-36.0) g/dL 33.2 RDW (11.7-14.6) % 13.7 Plt Count (130-400) x1000/uL 296 MPV (8.0-11.0) fL 9.0 Immature Gran % 0.1 Neutrophils % 61.4 Lymphocytes % 22.5 Monocytes % 8.8 Eosinophils % 6.5 Basophils % 0.7 Absolute Neutrophils (1.2-6.7) k/cumm 4.34 Absolute Lymphocytes (1.2-3.4) k/cumm 1.59 Absolute Monocytes (0.11-0.7) k/cumm 0.62 Absolute Eosinophils (0.0-0.7) k/cumm 0.46 Absolute Basophils (0.0-0.2) k/cumm 0.05 PT (9.3-11.0) sec 9.6 INR (0.9-1.1) 1.0 APTT (21.0-31.4) sec 23.4 Sodium (136-145) mmol/L 141 Potassium (3.5-5.1) mmol/L 3.2 L Chloride (98-107) mmol/L 103 Carbon Dioxide (21.0-32.0) mmol/L 28.7 Anion Gap (3-11) mmol/L 9.3 BUN (7-18) mg/dL 22 H Creatinine (0.55-1.02) mg/dL 0.61 Estimated GFR/1.73 m2 (mL/min/1.73m2) >= 60.00 Glucose (70-100) mg/dL 89 Calcium (8.5-10.1) mg/dL 9.5 Magnesium (1.8-2.4) mg/dL 2.1 Total Bilirubin (0.2-1.0) mg/dL 0.3 AST (15-37) U/L 25 ALT (12-78) U/L 40 Alkaline Phosphatase (46-116) U/L 157 H Troponin I (0.00-0.06) ng/mL < 0.02 Total Protein (6.4-8.2) g/dL 7.6 Albumin (3.4-5.0) g/dL 3.4 Urine Color (Yellow) Urine Clarity Urine pH (5-8) Ur Specific [place] (1.005-1.025) Urine Protein (Negative) mg/dL Urine Ketones (Negative) mg/dL Urine Blood (Negative) Urine Nitrite (Negative) Urine Bilirubin (Negative) Urine Urobilinogen (Up TO 0.2) EU/dL Ur Leukocyte Esterase (Negative) Urine RBC (0-2) Urine WBC (0-5) HPF Ur Epithelial Cells (Negative) HPF Urine Crystals (Negative) HPF Urine Bacteria (Negative) HPF Urine Casts (Negative) LPF Urine Mucus (Negative) Urine Other (Negative) Ur Culture Indicated? Urine Glucose (Negative) mg/dL Range/Units 10/03/18 18:55 WBC (4.4-10.8) k/cumm RBC (4.00-5.20) m/cumm Hgb (12.0-15.5) g/dL Hct (36.0-46.0) % MCV (80-95) fL MCH (27.0-33.0) pg MCHC (32.0-36.0) g/dL RDW (11.7-14.6) % Plt Count (130-400) x1000/uL MPV (8.0-11.0) fL Immature Gran % Neutrophils % Lymphocytes % Monocytes % Eosinophils % Basophils % Absolute Neutrophils (1.2-6.7) k/cumm Absolute Lymphocytes (1.2-3.4) k/cumm Absolute Monocytes (0.11-0.7) k/cumm Absolute Eosinophils (0.0-0.7) k/cumm Absolute Basophils (0.0-0.2) k/cumm PT (9.3-11.0) sec INR (0.9-1.1) APTT (21.0-31.4) sec Sodium (136-145) mmol/L Potassium (3.5-5.1) mmol/L Chloride (98-107) mmol/L Carbon Dioxide (21.0-32.0) mmol/L Anion Gap (3-11) mmol/L BUN (7-18) mg/dL Creatinine (0.55-1.02) mg/dL Estimated GFR/1.73 m2 (mL/min/1.73m2) Glucose (70-100) mg/dL Calcium (8.5-10.1) mg/dL Magnesium (1.8-2.4) mg/dL Total Bilirubin (0.2-1.0) mg/dL AST (15-37) U/L ALT (12-78) U/L Alkaline Phosphatase (46-116) U/L Troponin I (0.00-0.06) ng/mL Total Protein (6.4-8.2) g/dL Albumin (3.4-5.0) g/dL Urine Color (Yellow) Yellow Urine Clarity Clear Urine pH (5-8) 6.0 Ur Specific [place] (1.005-1.025) 1.015 Urine Protein (Negative) mg/dL Negative Urine Ketones (Negative) mg/dL Negative Urine Blood (Negative) Trace-intact H Urine Nitrite (Negative) Negative Urine Bilirubin (Negative) Negative Urine Urobilinogen (Up TO 0.2) EU/dL 0.2 Ur Leukocyte Esterase (Negative) Negative Urine RBC (0-2) 0-2 Urine WBC (0-5) HPF Negative Ur Epithelial Cells (Negative) HPF Rare Urine Crystals (Negative) HPF Negative Urine Bacteria (Negative) HPF Negative Urine Casts (Negative) LPF Negative Urine Mucus (Negative) Negative Urine Other (Negative) Rare renal Ur Culture Indicated? No Urine Glucose (Negative) mg/dL Negative ECG Data Attestation: I personally reviewed and interpreted this ECG (s) as follows: Interpretation: Rate of 83, sinus, no acute ST elevation or depression. QTc 439. QRS 88. HPI General Mode of arrival: wheelchair . Date/Time Provider Initiated Documentation: 10/03/18 15:29 . Limitations to Documentation: no limitations . Information obtained by: patient . HPI Narrative: Patient is a 78-year-old female with a history of hypertension, high cholesterol, and expressive aphasia who presents from pulmonary rehab with concern for stroke. Kaitlyn from respiratory therapy states she was working with patient in pulmonary rehab when she was noted to be having difficulty expressing herself. She states it seemed like her speech was slurred worse than usual. Patient's family member here did confirm that her speech seems worse than usual. Patient states she had some headache earlier but denies any at present. Related Data Home Medications Medication Instructions Recorded Confirmed calcium carbonate-vitamin D3 1 ea PO DAILY 08/10/16 09/08/18 pravastatin 20 mg tablet 30 mg PO DAILY #135 tab-cap 07/10/18 09/08/18 hydrochlorothiazide 25 mg tablet 12.5 mg PO DAILY #90 tab-cap 08/04/18 09/08/18 albuterol sulfate 2 puff IH Q4H PRN #18 gm 08/14/18 09/08/18 diclofenac sodium 50 mg 50 mg PO BID PRN #60 tab 09/17/18 tablet,delayed release Previous Rx's Medication Instructions Recorded pravastatin 20 mg tablet 30 mg PO DAILY #135 tab-cap 07/10/18 hydrochlorothiazide 25 mg tablet 12.5 mg PO DAILY #90 tab-cap 08/04/18 albuterol sulfate 2 puff IH Q4H PRN #18 gm 08/14/18 diclofenac sodium 50 mg 50 mg PO BID PRN #60 tab 09/17/18 tablet,delayed release Allergies Allergy/AdvReac Type Severity Reaction Status Date / Time No Known Allergies Allergy Verified 10/03/18 15:37 General LANA: 2 Review of Systems Review of Systems All systems reviewed & are unremarkable except as noted in HPI and below Constitutional Reports as per HPI, Denies chills and Denies fever(s) Eyes Denies blurry vision ENT Denies dizziness, Denies sore throat and Denies throat swelling Cardiovascular Denies chest pain and Denies dyspnea Respiratory Denies cough and Denies dyspnea Gastrointestinal Denies abdominal pain, Denies diarrhea and Denies vomiting Genitourinary Denies hematuria and Denies dysuria Musculoskeletal Denies back pain and Denies numbness Integumentary/Breasts Denies lesions and Denies rash Neurologic Reports abnormal speech, Denies dizziness, Denies focal weakness and Denies numb ness Allergic/Immunologic Denies throat swelling [facility], LAT[facility] Medical History Hyperlipidemia, unspecified (Chronic 08/20/16) Essential hypertension (Chronic 08/20/16) COPD (chronic obstructive pulmonary disease) (Chronic 08/27/17) Family History Mother Neoplasm Cancer Father Cancer Sister No problems noted. Brother No problems noted. Brother Essential hypertension Cancer Brother Stroke Maternal Grandfather Neoplasm Cancer Paternal Grandfather Cancer Maternal Grandmother No problems noted. Social History Smoking/Tobacco Use Status: Former Tobacco Use Quit Date: 08/27/97 Alcohol Intake: current Alcohol Intake frequency: 0-2 drinks per day Alcohol type: hard liquor Drug use: Never Substance use type: does not use Caregiver/Support person: No Household members: significant other Housing: house Pets and animals: Yes Pets and animals: cat(s) and dog(s) Do you think of yourself as: straight/heterosexual Current gender identity: decline to answer What is your relationship status?: living with partner How often do you talk on the phone with friends or family?: decline to answer How often do you get together with friends or relatives?: decline to answer How often do you attend holiness or islam services?: decline to answer Do you belong to any clubs or organized social groups?: decline to answer Panel score (0-1 are the most socially isolated patients): 1 What type of physical activity do you participate in: walking Duration: < 15 minutes/day Frequency: 1-2 times per week Tamika/Voodoo: Samaritan Special tamika needs: No Seatbelt use: always Drive intox 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 Do you feel safe in your relationship?: Yes Exam Const General: cooperative, healthy appearing and no acute distress HENMT Head: normal to inspection Face and sinus: normal facial exam Eyes General: appearance normal, both eyes and all related structures Pupils: PERRL EOM: EOM intact bilaterally Neck Neck: normal visual inspection and No submandibular swelling Lymphatic: no lymphadenopathy noted Chest Chest: normal inspection of the chest and no tenderness Resp Effort & Inspection: normal respiratory effort and able to speak in complete sentences Auscultation: clear to auscultation bilaterally Cardio Rate: regular rate Rhythm: regular rhythm GI Inspection: normal to inspection Palpation: soft, not firm, not rigid and nontender Auscultation: normal bowel sounds Skin General skin exam: no rashes or lesions noted Neuro General: alert, awake, oriented x3, gait normal, moves all extremities and no meningeal signs Cognition: normal cognition Speech: abnormal speech slurred Motor: muscle tone normal throughout and strength 5/5 throughout Sensory Exam: no sensory deficits noted Extrem General: normal to inspection, full ROM, normal capillary refill, no calf tenderness bilaterally and no edema Psych Appearance: grossly normal Mental Status: mental status grossly normal Speech and Movement: speech and movement normal Affect: normal affect
--- NOTE | 2018-10-03 15:31 | DI.CT_ITS ---
SYMPTOMS/DIAGNOSIS: SLURRED SPEECH, ? ACUTE CEREBROVASCULAR ACCIDENT CT BRAIN, NONCONTRAST: The ventricles and sulci are consistent with the patient's age. No acute infarct, hemorrhage, midline shift or mass effect is identified. The ventricles are intact. The basilar cisterns are patent. The visualized paranasal sinuses are clear. The mastoid air cells are well pneumatized. The calvarium is intact. IMPRESSION: No acute intracranial process. The findings were discussed with the Emergency Department on the date of the examination.
--- NOTE | 2018-10-03 15:56 | DI.RAD_ITS ---
SYMPTOM/DIAGNOSIS: SLURRED SPEECH FRONTAL AND LATERAL CHEST: Comparison is made with 08/21/18. Heart size and pulmonary vasculature are stable and within normal limits. No focal infiltrates, effusions or pneumothoraces are identified. The lungs appear hyperinflated suggesting underlying COPD. No acute osseous changes are seen in the spine. IMPRESSION: No acute pulmonary process.
[2018-10-03 16:53] LABS: Abs Immature Grans 0.01 k/cumm (0.0-0.09); Absolute Basophil Count 0.05 k/cumm (0.0-0.2); Absolute Eosinophil Count 0.46 k/cumm (0.0-0.7); Absolute Lymphocyte Count 1.59 k/cumm (1.2-3.4); Absolute Monocyte Count 0.62 k/cumm (0.11-0.7); Absolute Neutrophil Count 4.34 k/cumm (1.2-6.7); Basophils % 0.7; Eosinophils % 6.5; HCT 40.7 % (36.0-46.0); HGB 13.5 g/dL (12.0-15.5); Immature Grans % 0.1; Lymphocytes % 22.5; Mean Corp. HGB Concentration 33.2 g/dL (32.0-36.0); Mean Corpuscular Hemoglobin 30.6 pg (27.0-33.0); Mean Corpuscular Volume 92.3 fL (80-95); Monocytes % 8.8; Neutrophils % 61.4; Platelet Count 296 x1000/uL (130-400); RBC 4.41 m/cumm (4.00-5.20); RBC Distribution Width 13.7 % (11.7-14.6); White Blood Cell Count 7.07 k/cumm (4.4-10.8)
[2018-10-03 17:17] LABS: PTT Activated 23.4 sec (21.0-31.4); Prothrombin Time 9.6 sec (9.3-11.0)
[2018-10-03 17:36] LABS: ALT 40 U/L (12-78); AST 25 U/L (15-37); Albumin 3.4 g/dL (3.4-5.0); Alkaline Phosphatase 157 U/L (46-116); Anion Gap 9.3 mmol/L (3-11); BUN 22 mg/dL (7-18); Bilirubin, Total 0.3 mg/dL (0.2-1.0); CO2 28.7 mmol/L (21.0-32.0); CREATININE 0.61 mg/dL (0.55-1.02); Calcium 9.5 mg/dL (8.5-10.1); Chloride 103 mmol/L (98-107); Glucose 89 mg/dL (70-100); Magnesium 2.1 mg/dL (1.8-2.4); Potassium 3.2 mmol/L (3.5-5.1); Sodium 141 mmol/L (136-145); Total Protein 7.6 g/dL (6.4-8.2)
[2018-10-03 17:46] LABS: Troponin I < 0.02 ng/mL (0.00-0.06)
[2018-10-03 19:13] LABS: Bilirubin Negative (Negative); Blood Trace-intact (Negative); Clarity Clear; Glucose Negative (Negative); Ketones Negative (Negative); Leukocyte Esterase Negative (Negative); Nitrite Negative (Negative); Specific Gravity 1.015 (1.005-1.025); Urobilinogen 0.2 EU/dL (Up TO 0.2)
[2018-10-03 19:23] LABS: Bacteria Negative HPF (Negative); C & S Indicated? No; Casts Negative LPF (Negative); Crystals Negative HPF (Negative); Epithelial Cells Rare HPF (Negative); Mucus Negative (Negative); Other Cells Rare Renal (Negative); RBC 0-2 (0-2); WBC Negative HPF (0-5)
--- NOTE | 2018-10-03 20:07 | HPE_ITS ---
Date of service: 10/03/18 Time of Service: 19:57 Assessment and Plan (1) Aphasia: Current visit: Yes Status: Acute Mild expressive aphasia. I suspect she has had a small stroke, though could be more TIA. The basic workup has already been done though will watch on Telemetry to exclude PAF. For now I would only add aspirin, continue usual meds as is with a degree of permissive hypertension. History of Present Illness Chief Complaint: aphasia Narrative: 78 female has been having waxing and waning , or episodic, spells of word finding difficulty over the past few months. W/U has included negative MRI and carotid U/S. Today had similar spell while in Pulmonary Rehab and was sent to ER. In ER, CT head negative. Due to concern for ongoing spells patient admitted for further evaluation. At present patient states she continues to have some trouble expressing herself but otherwise feels well. Review of Systems Review of Systems All systems reviewed & are unremarkable except as noted in HPI and below PFSH Medical History Hyperlipidemia, unspecified (Chronic 08/20/16) Essential hypertension (Chronic 08/20/16) COPD (chronic obstructive pulmonary disease) (Chronic 08/27/17) Family History Mother Neoplasm Cancer Father Cancer Sister No problems noted. Brother No problems noted. Brother Essential hypertension Cancer Brother Stroke Maternal Grandfather Neoplasm Cancer Paternal Grandfather Cancer Maternal Grandmother No problems noted. Social History Smoking/Tobacco Use Status: Former Tobacco Use Quit Date: 08/27/97 Alcohol Intake: current Alcohol Intake frequency: 0-2 drinks per day Alcohol type: hard liquor Drug use: Never Substance use type: does not use Caregiver/Support person: No Household members: significant other Housing: house Pets and animals: Yes Pets and animals: cat(s) and dog(s) Do you think of yourself as: straight/heterosexual Current gender identity: decline to answer What is your relationship status?: living with partner How often do you talk on the phone with friends or family?: decline to answer How often do you get together with friends or relatives?: decline to answer How often do you attend pentecostal or confucianist services?: decline to answer Do you belong to any clubs or organized social groups?: decline to answer Panel score (0-1 are the most socially isolated patients): 1 What type of physical activity do you participate in: walking Duration: < 15 minutes/day Frequency: 1-2 times per week Tamika/Jehovah'S Witness: Yarsanism Special tamika needs: No Seatbelt use: always Drive 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 Do you feel safe in your relationship?: Yes Meds Home Medications Medication Instructions Recorded Confirmed Type calcium carbonate-vitamin D3 1 ea PO DAILY 08/10/16 09/08/18 History pravastatin 20 mg tablet 30 mg PO DAILY #135 tab-cap 07/10/18 09/08/18 Rx hydrochlorothiazide 25 mg tablet 12.5 mg PO DAILY #90 tab-cap 08/04/18 09/08/18 Rx albuterol sulfate 2 puff IH Q4H PRN #18 gm 08/14/18 09/08/18 Rx diclofenac sodium 50 mg 50 mg PO BID PRN #60 tab 09/17/18 Rx tablet,delayed release Allergies Allergy/AdvReac Type Severity Reaction Status Date / Time No Known Allergies Allergy Verified 10/03/18 15:37 Exam Narrative Exam Narrative: 155/73, 82, 18, 36.6. HEENT no trauma; neck supple, no bruit; lungs clear; heart RRR w/o murmur; abdomen soft, NT; extr: no edema; neuro: Ox3, knows the president,comprehension intact, follows commands, mild word finding difficulty and speech somewhat slow. CN: perrl, eomi, unable to assess visual newman, no facial asymettry, motor 5/5. Results Labs : 10/03/18 16:40 10/03/18 16:40 Laboratory Results - last 24 hr 10/03/18 10/03/18 10/03/18 16:40 16:40 16:40 WBC 7.07 RBC 4.41 Hgb 13.5 Hct 40.7 MCV 92.3 MCH 30.6 MCHC 33.2 RDW 13.7 Plt Count 296 MPV 9.0 Immature Gran % 0.1 Neutrophils % 61.4 Lymphocytes % 22.5 Monocytes % 8.8 Eosinophils % 6.5 Basophils % 0.7 Absolute Neutrophils 4.34 Absolute Lymphocytes 1.59 Absolute Monocytes 0.62 Absolute Eosinophils 0.46 Absolute Basophils 0.05 PT 9.6 INR 1.0 APTT 23.4 Sodium 141 Potassium 3.2 L Chloride 103 Carbon Dioxide 28.7 Anion Gap 9.3 BUN 22 H Creatinine 0.61 Estimated GFR/1.73 m2 >= 60.00 Glucose 89 Calcium 9.5 Magnesium 2.1 Total Bilirubin 0.3 AST 25 ALT 40 Alkaline Phosphatase 157 H Troponin I < 0.02 Total Protein 7.6 Albumin 3.4 Urine Color Urine Clarity Urine pH Ur Specific [place] Urine Protein Urine Ketones Urine Blood Urine Nitrite Urine Bilirubin Urine Urobilinogen Ur Leukocyte Esterase Urine RBC Urine WBC Ur Epithelial Cells Urine Crystals Urine Bacteria Urine Casts Urine Mucus Urine Other Ur Culture Indicated? Urine Glucose 10/03/18 18:55 WBC RBC Hgb Hct MCV MCH MCHC RDW Plt Count MPV Immature Gran % Neutrophils % Lymphocytes % Monocytes % Eosinophils % Basophils % Absolute Neutrophils Absolute Lymphocytes Absolute Monocytes Absolute Eosinophils Absolute Basophils PT INR APTT Sodium Potassium Chloride Carbon Dioxide Anion Gap BUN Creatinine Estimated GFR/1.73 m2 Glucose Calcium Magnesium Total Bilirubin AST ALT Alkaline Phosphatase Troponin I Total Protein Albumin Urine Color Yellow Urine Clarity Clear Urine pH 6.0 Ur Specific [place] 1.015 Urine Protein Negative Urine Ketones Negative Urine Blood Trace-intact H Urine Nitrite Negative Urine Bilirubin Negative Urine Urobilinogen 0.2 Ur Leukocyte Esterase Negative Urine RBC 0-2 Urine WBC Negative Ur Epithelial Cells Rare Urine Crystals Negative Urine Bacteria Negative Urine Casts Negative Urine Mucus Negative Urine Other Rare renal Ur Culture Indicated? No Urine Glucose Negative Last Vital Signs Temp 36.6 C 10/03/18 15:33 Pulse 82 10/03/18 15:33 Resp 18 10/03/18 16:00 BP 155/73 H 10/03/18 15:33 Pulse Ox 99 10/03/18 15:33
--- NOTE | 2018-10-03 20:17 | DI.VRAD_ITS ---
EXAM: XR Chest, 2 Views EXAM DATE/TIME: 10/03/2018 15:58 CLINICAL HISTORY: 78 years old, female; Signs and symptoms; Other: Slurred speech, R/O acute disease TECHNIQUE: Imaging protocol: XR of the chest, 2 views. COMPARISON: CR XR CHEST 2V PA LATERAL 08/21/2018 11:57 FINDINGS: Lungs: Hyperinflation without airspace consolidation similar to the previous study. Pleural space: No pleural effusion. No pneumothorax. Heart/Mediastinum: No cardiomegaly. Bones/joints: Degenerative changes in the shoulders. Probable calcific tendinitis in the right shoulder. IMPRESSION: Hyperinflation without airspace consolidation similar to the previous study. Dictated and Authenticated by: Keisha Bello MD. Ordering:FRANTZ Jaramillo MD
[2018-10-03] MEDS: Aspirin 325 MG TAB PO (22:04)
[2018-10-03] MEDS: Potassium Chloride 20 MEQ TABCR PO (22:04)
[2018-10-03] MEDS: Normal Saline Flush 10 ML SYR IVP (22:10)
[2018-10-04 00:15] VITALS: BP 161/89; PULSE 92; PULSE 93; RESP 16; TEMP 36.7; O2SAT 95
[2018-10-04 05:58] VITALS: BP 148/68; PULSE 85; RESP 16; TEMP 36.5; O2SAT 96
[2018-10-04 06:51] VITALS: PULSE 91
[2018-10-04 07:30] VITALS: BP 167/84; PULSE 90; RESP 18; TEMP 37.2; O2SAT 96
[2018-10-04 08:00] VITALS: O2SAT 96
[2018-10-04] MEDS: Pravastatin 20 MG TAB 30 MG PO (08:36)
[2018-10-04] MEDS: hydroCHLOROthiazide 25 MG TAB 12.5 MG PO (08:36)
--- NOTE | 2018-10-04 09:43 | DSE_ITS ---
Date of service: 10/04/18 Time of Service: 09:40 DS: Diagnosis Discharge Diagnosis (1) Aphasia: Status: Acute Discharge Plan Disposition Patient Disposition: HOME Condition: Stable Discharge Details Reason For Visit: APHASIA Admit Date/Time: 10/03/18 20:09 Admit Provider: Landen Fleming Attending Provider: Landen Fleming Primary Care Provider: Jordin Lynne [facility] Hospital Course: 78 female has been having waxing and waning , or episodic, spells of word finding difficulty over the past few months. W/U has included negative MRI and carotid U/S. Today had similar spell while in Pulmonary Rehab and was sent to ER. In ER, CT head negative. Due to concern for ongoing spells patient admitted for further evaluation. At present patient states she continues to have some trouble expressing herself but otherwise feels well. She appears to be at baseline. Aphasia is chronic without choking or coughing. She has not had any worsening symptoms. Potassium was a little low at 3.2 repleted with 40 mg potassium. Telemetry revealing sinus rhythm with first degree AVB, will be going home with zio patch. Recommend Echo as an outpatient. Work up reveals no CVA, possible TIA, for that she will be sent home on ASA 325 daily follow up with PCP in 1 week. 1. Aphasia: Mild expressive aphasia. I suspect she has had a small stroke, though could be more TIA. The basic workup has already been done though will watch on Telemetry to exclude PAF. For now add aspirin, continue usual meds as is with a degree of permissive hypertension. Home Meds and New Rx's Prescriptions: New aspirin 325 mg tablet 325 mg PO DAILY Qty: 30 RF: 0 Continued hydrochlorothiazide 25 mg tablet 12.5 mg PO DAILY Qty: 90 RF: 3 pravastatin 20 mg tablet 30 mg PO DAILY Qty: 135 RF: 3 diclofenac sodium 50 mg tablet,delayed release (DR/EC) 50 mg PO BID PRN (Reason: pain) Qty: 60 RF: 2 calcium carbonate-vitamin D3 1 EACH tablet 1 ea PO DAILY RF: 0 albuterol sulfate 90 mcg/actuation HFA aerosol inhaler 2 puff IH Q4H PRN (Reason: shortness of breath or wheezing) Qty: 18 RF: 4 Discharge Instructions Instructions: Aspirin (By mouth), Transient Ischemic Attack (GEN), Aphasia (GEN) Additional Instructions: Follow up with Primary in one week. Recommend and outpatient Echocardiogram Take 325 aspirin daily IF you have worsening symptoms, chest pain, shortness of breath, facial droop or weakness on one side of the body seek medical attention immediately. Activity:: Activity as Tolerated Equipment/Supplies:: No Equipment Needed Diet:: As Tolerated Discharge Orders Discharge Orders: Discharge Order (Routine); Ordered 10/04/18 Ordered By: Autumn Beverly Other Ambulatory Orders: US echocardiogram (Routine) Location: Determined by Patient Ordered By: Autumn Beverly Exam Const General: cooperative, healthy appearing, comfortable and no acute distress Chest Chest: normal inspection of the chest Resp Effort & Inspection: normal respiratory effort, able to speak in complete sentences and abnormal respiratory pattern (baseline for patient) other Auscultation: clear to auscultation bilaterally Cardio Jugular venous pressure: no JVD Rate: regular rate Rhythm: regular rhythm Skin General skin exam: no rashes or lesions noted Neuro General: alert, awake and oriented x3 Speech: abnormal speech and expressive aphasia (baseline for patient) Extrem General: normal to inspection DS: Data Vitals/I&O Vitals and I&O: Vital Signs Temperature 36.5 C 10/04/18 05:58 Temperature Source Tympanic 10/04/18 05:58 Pulse 91 H 10/04/18 06:51 Pulse Rhythm Regular 10/04/18 08:00 Pulse 91 H 10/03/18 18:30 Respiratory Rate 16 10/04/18 05:58 Respiratory Effort 10/04/18 08:00 Respiratory Depth Normal 10/04/18 08:00 Respiratory Pattern Normal 10/04/18 08:00 Blood Pressure 148/68 H 10/04/18 05:58 Blood Pressure Mean 97 10/03/18 20:30 Pulse Oximetry 96 10/04/18 05:58 Oxygen Delivery Method Room Air 10/04/18 05:58 Oxygen Flow Rate 0 10/04/18 05:58 Pain Level 0 10/03/18 20:48 Intake & Output 10/03/18 10/03/18 10/04/18 11:59 23:59 11:59 Output Total 400 / 400 1100 / 1100 Balance -400 / -400 -1100 / -1100 Weight 74.4 kg Output: Urine 400 / 400 1100 / 1100 Other: Urine Color Yellow Yellow Urine Appearance Clear Clear Voiding Methods Toilet Toilet Completed studies during hospitalization [Text1]: SYMPTOMS/DIAGNOSIS: SLURRED SPEECH, ? ACUTE CEREBROVASCULAR ACCIDENT CT BRAIN, NONCONTRAST: The ventricles and sulci are consistent with the patient's age. No acute infarct, hemorrhage, midline shift or mass effect is identified. The ventricles are intact. The basilar cisterns are patent. The visualized paranasal sinuses are clear. The mastoid air cells are well pneumatized. The calvarium is intact. IMPRESSION: No acute intracranial process. EXAM DATE/TIME: 10/03/2018 15:58 CLINICAL HISTORY: 78 years old, female; Signs and symptoms; Other: Slurred speech, R/O acute disease TECHNIQUE: Imaging protocol: XR of the chest, 2 views. COMPARISON: CR XR CHEST 2V PA LATERAL 08/21/2018 11:57 FINDINGS: Lungs: Hyperinflation without airspace consolidation similar to the previous study. Pleural space: No pleural effusion. No pneumothorax. Heart/Mediastinum: No cardiomegaly. Bones/joints: Degenerative changes in the shoulders. Probable calcific tendinitis in the right shoulder. IMPRESSION: Hyperinflation without airspace consolidation similar to the previous study. Labs on day of discharge: Labs from last 24 hours 10/03/18 10/03/18 10/03/18 18:55 16:40 16:40 WBC 7.07 RBC 4.41 Hgb 13.5 Hct 40.7 MCV 92.3 MCH 30.6 MCHC 33.2 RDW 13.7 Plt Count 296 MPV 9.0 Immature Gran % 0.1 Neutrophils % 61.4 Lymphocytes % 22.5 Monocytes % 8.8 Eosinophils % 6.5 Basophils % 0.7 Absolute Neutrophils 4.34 Absolute Lymphocytes 1.59 Absolute Monocytes 0.62 Absolute Eosinophils 0.46 Absolute Basophils 0.05 PT 9.6 INR 1.0 APTT 23.4 Sodium Potassium Chloride Carbon Dioxide Anion Gap BUN Creatinine Estimated GFR/1.73 m2 Glucose Calcium Magnesium Total Bilirubin AST ALT Alkaline Phosphatase Troponin I Total Protein Albumin Urine Color Yellow Urine Clarity Clear Urine pH 6.0 Ur Specific [place] 1.015 Urine Protein Negative Urine Ketones Negative Urine Blood Trace-intact H Urine Nitrite Negative Urine Bilirubin Negative Urine Urobilinogen 0.2 Ur Leukocyte Esterase Negative Urine RBC 0-2 Urine WBC Negative Ur Epithelial Cells Rare Urine Crystals Negative Urine Bacteria Negative Urine Casts Negative Urine Mucus Negative Urine Other Rare renal Ur Culture Indicated? No Urine Glucose Negative 10/03/18 16:40 WBC RBC Hgb Hct MCV MCH MCHC RDW Plt Count MPV Immature Gran % Neutrophils % Lymphocytes % Monocytes % Eosinophils % Basophils % Absolute Neutrophils Absolute Lymphocytes Absolute Monocytes Absolute Eosinophils Absolute Basophils PT INR APTT Sodium 141 Potassium 3.2 L Chloride 103 Carbon Dioxide 28.7 Anion Gap 9.3 BUN 22 H Creatinine 0.61 Estimated GFR/1.73 m2 >= 60.00 Glucose 89 Calcium 9.5 Magnesium 2.1 Total Bilirubin 0.3 AST 25 ALT 40 Alkaline Phosphatase 157 H Troponin I < 0.02 Total Protein 7.6 Albumin 3.4 Urine Color Urine Clarity Urine pH Ur Specific [place] Urine Protein Urine Ketones Urine Blood Urine Nitrite Urine Bilirubin Urine Urobilinogen Ur Leukocyte Esterase Urine RBC Urine WBC Ur Epithelial Cells Urine Crystals Urine Bacteria Urine Casts Urine Mucus Urine Other Ur Culture Indicated? Urine Glucose [facility] Medical History Hyperlipidemia, unspecified (Chronic 08/20/16) Essential hypertension (Chronic 08/20/16) COPD (chronic obstructive pulmonary disease) (Chronic 08/27/17) Family History Mother Neoplasm Cancer Father Cancer Sister No problems noted. Brother No problems noted. Brother Essential hypertension Cancer Brother Stroke Maternal Grandfather Neoplasm Cancer Paternal Grandfather Cancer Maternal Grandmother No problems noted. Social History Smoking/Tobacco Use Status: Former Tobacco Use Quit Date: 08/27/97 Alcohol Intake: current Alcohol Intake frequency: 0-2 drinks per day Alcohol type: hard liquor Drug use: Never Substance use type: does not use Caregiver/Support person: No Household members: significant other Housing: house Pets and animals: Yes Pets and animals: cat(s) and dog(s) Do you think of yourself as: straight/heterosexual Current gender identity: decline to answer What is your relationship status?: living with partner How often do you talk on the phone with friends or family?: decline to answer How often do you get together with friends or relatives?: decline to answer How often do you attend mosque or presybeterian services?: decline to answer Do you belong to any clubs or organized social groups?: decline to answer Panel score (0-1 are the most socially isolated patients): 1 What type of physical activity do you participate in: walking Duration: < 15 minutes/day Frequency: 1-2 times per week Tamika/Moravian: Latter-Day Special tamika needs: No Seatbelt use: always Drive intox or ride w/intox operator and truck driver: No Do you feel safe at home: Yes Do you feel safe in your relationship?: Yes
[2018-10-04 10:40] VITALS: PULSE 92
[2018-10-04] MEDS: Potassium Chloride 20 MEQ TABCR 40 MEQ PO (11:27)
--- NOTE | 2018-10-04 15:19 | PDOC.CMDIS ---
LACE Index Scoring Tool - Questions: Length of Stay (in days): 1 Acuity (Admit via E.D.?): Yes E.D. Visits: 1 - Answers: Total Score: 5 Risk of Readmission: Low Risk Care Management Discharge Reason for Hospitalization: Aphasia Discharge Plan: Aleida will return home whn medically cleared for discharge. No services needed. Shipfitter, Chandler Davis, will transport by car. Patient/Family Education Needs: Discharge insructions and follow up appointments.
--- NOTE | 2018-10-04 15:26 | CMDISCH_ITS ---
LACE Index Scoring Tool - Questions: Length of Stay (in days): 1 Acuity (Admit via E.D.?): Yes E.D. Visits: 1 - Answers: Total Score: 5 Risk of Readmission: Low Risk Care Management Discharge Reason for Hospitalization: Aphasia Discharge Plan: Aleida will return home whn medically cleared for discharge. No services needed. Patrol Mother, Chandler Davis, will transport by car. Patient/Family Education Needs: Discharge insructions and follow up appointments.
== END 2018-10-04 12:38 | disposition home or self-care (01) ==
LOC: ER 20:04 → MS 20:50
PROVIDERS: Admitting Provider General Practice; Emergency Provider Physician Assistant; PCP Family Medicine; Visit Provider Family Medicine
DX: R47.01 Aphasia (principal); E87.6 Hypokalemia; I44.0 Atrioventricular block, first degree; F80.1 Expressive language disorder; I10 Essential (primary) hypertension; J44.9 Chronic obstructive pulmonary disease, unspecified; Z87.891 Personal history of nicotine dependence
CPT/HCPCS: 36415; 80053; 93005; 99222; 99239; 99285; 70450; 71046; 81003; 81015; 83735; 84484; 85025; 85610; 85730; 93010; 99217; 99219; G0378

== ENCOUNTER 2018-10-22 14:24 | Outpatient (CLI) | payer MEDICARE, BC, SELFPAY | END 2018-10-22 14:44 | PROVIDERS: PCP Family Medicine; Referring Provider Family Medicine; Visit Provider Internal Medicine Interventional Cardiology | DX: R06.02 Shortness of breath (principal); I49.1 Atrial premature depolarization | CPT/HCPCS: 0298T ==

== ENCOUNTER 2018-10-27 09:22 | Outpatient (RCR) | payer MEDICARE, BC, SELFPAY | END 2018-11-26 23:59 | disposition home or self-care (01) | LOC: PRC 09:22 | PROVIDERS: PCP Family Medicine; Visit Provider Family Medicine | DX: J44.9 Chronic obstructive pulmonary disease, unspecified (principal); Z51.89 Encounter for other specified aftercare | CPT/HCPCS: G0424 ==

== ENCOUNTER 2018-11-27 09:05 | Outpatient (RCR) | payer MEDICARE, BC, SELFPAY | END 2018-12-27 23:59 | disposition home or self-care (01) | LOC: PRC 09:05 | PROVIDERS: PCP Family Medicine; Visit Provider Family Medicine | DX: J44.9 Chronic obstructive pulmonary disease, unspecified (principal); Z51.89 Encounter for other specified aftercare | CPT/HCPCS: G0424 ==

== ENCOUNTER 2019-01-26 13:00 | Outpatient (RCR) | payer SELFPAY ==
--- NOTE | 2018-12-31 13:00 | PR3E_ITS ---
78 year old female who completed Phase 2 of pulmonary Rehabilitation and has chosen to continue with exercise 3 days per week as part of our maintenance program. We began caring for Aleida in the pulmonary rehabilitation setting in August 2018. We established a great rapport with Aleida and her support person- Chandler. During her time with us Aleida was being referred to neurology at [facility] [place] for multiple symptoms (falls, balance issues, aphasia, memory changes) and was eventually diagnosed with a supranuclear palsy. Our pulmonary rehab team decided that given Aleida's recent diagnosis, that we would refer her to palliative care. Aleida and her partner (Chandler) initially met with Dr.Mary Phipps in the pulmonary rehabilitation office and from there they set up appointments with at her palliative care office. See 's notes for specifics regarding palliative plan of care. As noted, Aleida can safely continue to exercise in our maintenance program with stand by staff assistance and we will offer her this service for as long as she is able to participate and we can maintain her physical safety. 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 First day of maintenance program was 12/31/2018- Aleida continued her regular exercise regimen from Phase 2. Resting BP 161/72, HR 76, Oxygen saturation 95% on room air. She tolerated a total of 28 minutes of exercise on the treadmill, NuStep, and UBE. Her oxygen saturations were 95-96%, heart rate 81-89 w/ exercise. RPE and RPD scales were appropriate for activity. Will continue to monitor and assist Aleida with exercise for as long as she can physically and safely participate given her diagnosis of supranuclear ocular palsy.
== END 2019-01-26 23:59 | disposition home or self-care (01) ==
LOC: PRC 13:00
PROVIDERS: PCP Family Medicine; Visit Provider Family Medicine
DX: J44.9 Chronic obstructive pulmonary disease, unspecified (principal); Z51.89 Encounter for other specified aftercare
CPT/HCPCS: S9472

== ENCOUNTER 2019-01-27 06:25 | Outpatient (RCR) | payer SELFPAY | END 2019-02-26 23:59 | disposition home or self-care (01) | LOC: PRC 06:25 | PROVIDERS: PCP Family Medicine; Visit Provider Family Medicine | DX: J44.9 Chronic obstructive pulmonary disease, unspecified (principal); Z51.89 Encounter for other specified aftercare | CPT/HCPCS: S9472 ==

== ENCOUNTER 2019-02-25 13:30 | Outpatient (RCR) | payer SELFPAY | END 2019-02-26 23:59 | disposition home or self-care (01) | LOC: CR 13:30 | PROVIDERS: PCP Family Medicine; Visit Provider Family Medicine | DX: Z51.89 Encounter for other specified aftercare (principal) ==

== ENCOUNTER 2019-03-25 13:34 | Outpatient (RCR) | payer SELFPAY | END 2019-03-28 23:59 | disposition home or self-care (01) | LOC: CR 13:34 | PROVIDERS: PCP Family Medicine; Visit Provider Family Medicine | DX: Z51.89 Encounter for other specified aftercare (principal) | CPT/HCPCS: S9472 ==

== ENCOUNTER 2019-04-17 13:00 | Outpatient (RCR) | payer SELFPAY | END 2019-04-28 23:59 | disposition home or self-care (01) | LOC: CR 13:00 | PROVIDERS: PCP Family Medicine; Visit Provider Family Medicine | DX: Z51.89 Encounter for other specified aftercare (principal) | CPT/HCPCS: S9472 ==

== ENCOUNTER 2019-05-25 13:10 | Outpatient (RCR) | payer SELFPAY | END 2019-05-29 23:59 | disposition home or self-care (01) | LOC: CR 13:10 | PROVIDERS: PCP Family Medicine; Visit Provider Family Medicine | DX: Z51.89 Encounter for other specified aftercare (principal) | CPT/HCPCS: S9472 ==

== ENCOUNTER 2019-06-19 14:22 | Outpatient (RCR) | payer SELFPAY | END 2019-06-27 23:59 | disposition home or self-care (01) | LOC: CR 14:22 | PROVIDERS: PCP Family Medicine; Visit Provider Family Medicine | DX: Z51.89 Encounter for other specified aftercare (principal) | CPT/HCPCS: S9472 ==

== ENCOUNTER 2019-06-28 03:12 | Outpatient (RCR) | payer SELFPAY | END 2019-07-28 23:59 | disposition home or self-care (01) | LOC: CR 03:12 | PROVIDERS: PCP Family Medicine; Visit Provider Family Medicine | DX: Z51.89 Encounter for other specified aftercare (principal) | CPT/HCPCS: S9472 ==